=== PATIENT | female | born 1990 | race Caucasian/White ===

== ENCOUNTER 2022-12-27 09:21 | Inpatient (IN) | payer OTHER ==
[~2022-12-27] VITALS: Ht 154.9 cm; Wt 75.3 kg
[2022-12-27 09:25] VITALS: BP 148/105
[2022-12-27] MEDS ORDERED: ONDANSETRON 4 MG/2 ML VIAL IVP ONE (10:05)
[2022-12-27] MEDS ORDERED: NACL 0.9% 1,000 ML IV SCH ×2 (10:05→13:25)
[2022-12-27] MEDS ORDERED: KETOROLAC 30 MG/ML VIAL IVP ONE (10:05)
[2022-12-27 10:27] LABS: APPEARANCE,URINE CLEAR (CLEAR); BILIRUBIN,URINE NEGATIVE (NEGATIVE); BLOOD, URINE TRACE-I (NEGATIVE); COLOR,URINE YELLOW (YELLOW); LEUKOCYTE ESTERASE ,URINE NEGATIVE (NEGATIVE); NITRITE, URINE NEGATIVE (NEGATIVE); UGLUCOSE NEGATIVE (NEGATIVE)
[2022-12-27 10:28] LABS: BASOPHILS % (AUTO) 0.2 % (0.0-2.0); EOSINOPHILS # (AUTO) 0.3 K/uL (0-0.4); HEMOGLOBIN 13.5 g/dL (12.0-16.0); LYMPHOCYTES # (AUTO) 1.5 K/uL (2.5-16.5); LYMPHOCYTES % (AUTO) 15.2 % (20.5-51.1); MEAN CORPUSCULAR HEMOGLOBIN 31 pg (27-31); MEAN CORPUSCULAR HGB CONC 35 g/dL (33-37); MEAN CORPUSCULAR VOLUME 90.8 fL (80-94); MONOCYTES # (AUTO) 0.7 K/uL (0.8-1.0); MONOCYTES % (AUTO) 6.6 % (1.7-9.3); NEUTROPHILS # (AUTO) 7.4 K/uL (1.8-7.7); PLATELET COUNT (AUTO) 256 K/uL (140-450); RED CELL DISTRIBUTION WIDTH 12.8 % (11.6-13.7); WHITE BLOOD COUNT (AUTO) 9.8 K/uL (4.8-10.8)
--- NOTE | 2022-12-27 10:36 | NUR ---
Pt bibs for abd pain for days that has worsened. Pt has hx of gallstones starting 1.5 years ago, never passed. Pain is center/upper abd, radiates to back, 10/10, constant, worse with movement or palpation. Pt a/o x 4, vss, no ss of acute distress, breathing equal and unlabored, speech clear, has seen pt. Labs handed to lab at bedside. Pt medicated as ordered, tolerating well.
[2022-12-27 10:37] LABS: RBC,URINE 0-5 /HPF (0-5); WBC,URINE 0-5 /HPF (0-5)
[2022-12-27 11:48] LABS: ALBUMIN 4.4 g/dL (3.4-5.0); ANION GAP 14.5 (8-16); CARBON DIOXIDE 23.3 mmol/L (21-32); CREATININE 0.6 mg/dL (0.6-1.3); POTASSIUM 3.8 mmol/L (3.5-5.1); TOTAL BILIRUBIN 0.5 mg/dL (0.0-1.0)
--- NOTE | 2022-12-27 12:00 | NUR ---
Note kayy in EDM - 12/27/22 at 1256 by [email or web address] Pt is awake/alert and oriented x 4. and myself, spoke with pt to obtain hx and assess pt. Pt does not remember coming in to ed. Pt speaks in complete sentences. No complaints at this time.
--- NOTE | 2022-12-27 12:48 | NUR ---
Pt had originaly stated she would leave AMA and return to [facility] when ready for tx. Pt ultimately decided against leaving AMA after speaking with family. Pt now stated she will accept admission. Pt spoke with MD to make him aware of decision. Pt on monitor. Medicated as ordered, tolerated well.
[2022-12-27] MEDS ORDERED: HYDROcodone/APAP 5/325 MG 1 TAB TAB PO PRN (13:25)
[2022-12-27] MEDS ORDERED: MAG SULF 2000 MG/WATER PREMIX 50 ML IV PRN (13:25)
[2022-12-27] MEDS ORDERED: MORPHINE SULFATE 4 MG/ML SYR IVP PRN (13:25)
[2022-12-27] MEDS ORDERED: ACETAMINOPHEN 325 MG TAB PO PRN (13:25)
[2022-12-27] MEDS ORDERED: KCL 20 MEQ/WATER INJ PREMIX 200 ML IV PRN (13:25)
[2022-12-27] MEDS ORDERED: POTASSIUM CHLORIDE 10 MEQ TABER PO PRN (13:25)
[2022-12-27] MEDS ORDERED: MAGNESIUM OXIDE 400 MG TAB PO PRN (13:25)
--- NOTE | 2022-12-27 13:30 | NUR ---
Pt assisted to bathroom and back. Placed back on monitor.
[2022-12-27] MEDS ORDERED: MORPHINE SULFATE 2 MG/ML SYR IVP PRN (13:40)
[2022-12-27] MEDS ORDERED: KETOROLAC 15 MG/ML VIAL IVP PRN (14:55)
--- NOTE | 2022-12-27 16:56 | NUR ---
PATIENT HAS BEEN SCREENED AND CATEGORIZED LOW NUTRITION RISK. PATIENT WILL BE SEEN WITHIN 7 DAYS OF ADMISSION. 01/03/23 REVIEWED BY MERY [address]
--- NOTE | 2022-12-27 17:32 | NUR ---
[facility] came to take pt for procedure, pt refused. Pt spoke with vinod at length and then informed me that she would not be doing the scan before her baby. Baby allowed in ED so pt can breastfeed. After , pt informed myself and lead RN that she will be leaving AMA.
[2022-12-27 17:55] VITALS: BP 128/63
--- NOTE | 2022-12-27 17:58 | NUR ---
Pt left AMA. A call was made to admitting Physician. Pt did not want to wait for call back. Pt stated she had a plan to see her primary tomorrow and go to [facility] if she needed to. Pt is a/o x 4, vss, no ss of acute distress, breathing equal and unlabored, speech clear, IV removed, steady gait witnessed. Lead RN aware.
[2022-12-27] MEDS ORDERED: metroNIDAZOLE 500 MG/NS PREMIX 100 ML IV SCH (21:00)
== END 2022-12-27 17:47 | disposition left against medical advice (07) ==
LOC: MED 09:21 → MMU 13:30 → MED 13:30
PROVIDERS: ADMIT Internal Medicine; ATTEND Internal Medicine
DX: K81.0 Acute cholecystitis (principal); E66.9 Obesity, unspecified; Z68.31 Body mass index [BMI] 31.0-31.9, adult; Z20.822 Contact with and (suspected) exposure to COVID-19
CPT/HCPCS: 36415; 76705; 80053; 81001; 83605; 83690; 85025; 87040; 96361; 96365; 96375; 99285; J0694; J1885; J2405; Q0092